=== PATIENT | male | born 1970 | race African-American/Black ===

== ENCOUNTER 2017-05-14 18:55 | Inpatient (IN) | payer OTHER ==
[~2017-05-14] VITALS: Ht 172.7 cm; Wt 96.6 kg
[2017-05-14] VITALS (9 sets, daily range): BP systolic 185–215; BP diastolic 114–165
[2017-05-14] MEDS ORDERED: Nitroglycerin Subl 0.4mg tab SL STA ×2 (19:38→20:02)
[2017-05-14] MEDS ORDERED: Enalaprilat 1.25mg/ml Inj IV ONE (19:45)
--- NOTE | 2017-05-14 20:02 | Emergency Room Report ---
History of Present Illness General Chief Complaint: Edema Source: Patient Present Illness HPI 47 show male walked in with a chief complaint of 2-3 days of shortness of breath , increased leg swelling. Noncompliance with Lasix clonidine and other blood pressure medication for 2-3 days States history of CHF, hypertension Denies chest pain, abdominal pain, vomiting, fever chills, recent hospitalization Allergies: Coded Allergies: No Known Allergies (Unverified , 05/14/17) Patient History Past Medical History: HTN, CHF Past Surgical History: none Pertinent Family History: none Social History: Denies: smoking, alcohol use, drug use Immunizations: UTD Reviewed Nursing Documentation: PMH: Agreed, PSxH: Agreed Nursing Documentation-PMH Hx Cardiac Problems: Yes - CHF Hx Hypertension: Yes Hx Asthma: Yes - Bronchitis Review of Systems All Other Systems: negative except mentioned in HPI Physical Exam Vital Signs Date Time Temp Pulse Resp B/P (MAP) Pulse Ox O2 Delivery O2 Flow Rate FiO2 05/14/17 19:13 98.2 101 14 198/134 93 Room Air Sp02 EP Interpretation: reviewed, normal General Appearance: normal inspection, well appearing, alert, GCS 15, non-toxic , mild distress Head: normocephalic, atraumatic Eyes: bilateral eye PERRL, bilateral eye EOMI ENT: normal ENT inspection, hearing grossly normal, normal pharynx, no angioedema, normal voice, TMs + canals normal, uvula midline, moist mucus membranes Neck: normal inspection, full range of motion, supple, thyroid normal, no meningismus, no bony tend Respiratory: normal inspection, no rhonchi, no retraction, no accessory muscle use, no wheezing, decreased breath sounds, rales, speaking full sentences Cardiovascular #1: regular rate, rhythm, no edema, no JVD, normal capillary refill Gastrointestinal: normal inspection, normal bowel sounds, non tender, soft, no mass, no peritonitis, non-distended, no guarding, no hernia, no pulsatile mass Genitourinary: no CVA tenderness Musculoskeletal: normal inspection, back normal, normal range of motion, no calf tenderness, pelvis stable, Radha's Sign negative, other - bilateral pitting edema to knees Neurologic: normal inspection, alert, oriented x3, responsive, lace inspector III-XII nml as tested, motor strength/tone normal, cerebellar normal, normal gait, speech normal Psychiatric: normal inspection, judgement/insight normal, mood/affect normal, no suicidal/homicidal ideation, no delusions Skin: normal inspection, normal color, no rash Lymphatic: normal inspection, no adenopathy Procedures Critical Care Time Critical Care Time CC time 35 minutes Critical care time endorsed for this patient for acute on chronic CHF, hypertensive emergency, elevated troponin Critical care time includes review of laboratory tests, imaging, review of EMR, review of paperwork from SNF (if available), discussion with patient and family (if available), review of code status/POLS (if available). Critical care time also likely includes assessment of fluid status, stabilization of vital signs, selection and dosing of appropriate antibiotics, selection and dosing of Aspirin/Plavix/Heparin/Lovenox, discussion with PMD/ attending hospitalist/sanitation associate. Critical care time does not include any procedures which are documented elsewhere in this EMR. Medical Decision Making Diagnostic Impression: Primary Impression: Edema Qualified Codes: R60.9 - Edema, unspecified Additional Impressions: CHF (congestive heart failure) Qualified Codes: I50.9 - Heart failure, unspecified Noncompliance Hypertensive emergency ER Course VS with tachycardia, hypertension Afebrile Mild respiratory distress, acute CHF Was given lasix, supplemental O2, clonidine Started on nitro gtt for reftratory HTN, hypertensive emergency likely given elevated troponin CXR with bilateral pulm congestion Endorsed to Dr Bran for ICU at 9pm EKG Diagnostic Results Rate: tachycardiac Rhythm: NSR ST Segments: no acute changes ASA given to the pt in ED: No Rhythm Strip Diag. Results EP Interpretation: yes Rate: 116 Rhythm: NSR, no PVC's, no ectopy Chest X-Ray Diagnostic Results Chest X-Ray Diagnostic Results : Chest X-Ray Ordered: Yes # of Views/Limited/Complete: 1 View Indication: Shortness of Breath EP Interpretation: Yes Interpretation: no consolidation, no pneumothorax, other - Cardiomegaly, pulm congestion Impression: No acute disease Electronically Signed by: Dr Walker Martínez mD Last Vital Signs Date Time Temp Pulse Resp B/P (MAP) Pulse Ox O2 Delivery O2 Flow Rate FiO2 05/14/17 19:13 98.2 101 14 198/134 93 Room Air Status: improved Disposition: ADMITTED INPATIENT Condition: Critical WALKER MARTÍNEZ M.D. May 14, 2017 20:02
[2017-05-14 20:09] LABS: BASOPHILS % (AUTO) 1.7 % (0.0-2.0); HEMATOCRIT 28.8 % (42.0-52.0); HEMOGLOBIN 8.6 G/DL (14.2-18.0); LYMPHOCYTES % (AUTO) 21.2 % (20.0-45.0); MEAN CORPUSCULAR VOLUME 70 FL (80-99); MONOCYTES % (AUTO) 11.7 % (1.0-10.0); NEUTROPHILS % (AUTO) 62.4 % (45.0-75.0); PLATELET COUNT 361 K/UL (150-450); RED BLOOD COUNT 4.11 M/UL (4.70-6.10); RED CELL DISTRIBUTION WIDTH 16.9 % (11.6-14.8); WHITE BLOOD COUNT 8.2 K/UL (4.8-10.8)
[2017-05-14] MEDS ORDERED: cloNIDine 0.2mg Tab ORAL ONE (20:15)
[2017-05-14 20:33] LABS: ANION GAP 7 mmol/L (5-15); BLOOD UREA NITROGEN 26 mg/dL (7-18); CALCIUM 8.6 MG/DL (8.5-10.1); CARBON DIOXIDE 26 MMOL/L (21-32); CHLORIDE 107 MMOL/L (98-107); CREATININE 1.9 MG/DL (0.55-1.30); POTASSIUM 3.7 MMOL/L (3.5-5.1); SODIUM 140 MMOL/L (136-145)
[2017-05-14 20:45] LABS: ALANINE AMINOTRANSFERASE 71 U/L (12-78); ALBUMIN 3.2 G/DL (3.4-5.0); ALBUMIN/GLOBULIN RATIO 0.8 (1.0-2.7); ALKALINE PHOSPHATASE 147 U/L (46-116); ASPARTATE AMINO TRANSFERASE 37 U/L (15-37); BILIRUBIN,TOTAL 1.2 MG/DL (0.2-1.0); CKMB 2.4 NG/ML (0.0-3.6); CREATINE KINASE 182 U/L (26-308)
[2017-05-14] MEDS ORDERED: Nitroglycerin 50mg/250ml btl 250 ML IV SCH ×2 (21:00→22:15)
[2017-05-14 21:03] LABS: BILIRUBIN,DIRECT 0.3 MG/DL (0.0-0.3)
[2017-05-14] MEDS ORDERED: cloNIDine 0.2mg Tab ORAL PRN (22:15)
[2017-05-14] MEDS ORDERED: Doxazosin 4mg tab ORAL SCH (22:15)
[2017-05-14] MEDS: Heparin 5000 units/ml inj SUBQ SCH (23:22)
[2017-05-14 23:29] LABS: APPEARANCE,URINE CLEAR; BILIRUBIN, URINE NEGATIVE (NEGATIVE); COLOR,URINE PALE YELLOW; GLUCOSE, URINE (UA) NEGATIVE (NEGATIVE); KETONES,URINE NEGATIVE (NEGATIVE); LEUKOCYTE ESTERASE ,URINE 1+ (NEGATIVE); NITRITE,URINE NEGATIVE (NEGATIVE); PH,URINE 6 (4.5-8.0); PROTEIN,URINE NEGATIVE (NEGATIVE); UROBILINOGEN,URINE NORMAL MG/DL (0.0-1.0)
[2017-05-14] MEDS: HydrALAZINE 50mg tab ORAL SCH (23:30)
[2017-05-15] VITALS (36 sets, daily range): BP systolic 95–165; BP diastolic 68–99
[2017-05-15] MEDS ORDERED: LORazepam Inj 2mg/ml 1ml IV ONE (01:00)
[2017-05-15] MEDS ORDERED: Nitroglycerin 50mg/250ml btl 250 ML IV SCH (02:15)
[2017-05-15] MEDS ORDERED: Metoprolol 5mg/5ml Inj IVPB ONE (02:30)
[2017-05-15] MEDS ORDERED: Metoprolol 5mg/5ml Inj ONE (03:09)
[2017-05-15] MEDS ORDERED: Metoprolol Tartrate 10 MG in D5W 55 ML IVPB SCH (03:15)
[2017-05-15] MEDS: Metoprolol 25mg tab ORAL SCH ×4 (04:42→22:40)
[2017-05-15] MEDS: HydrALAZINE 50mg tab ORAL SCH ×3 (06:08→21:25)
[2017-05-15 08:42] LABS: ANION GAP 5 mmol/L (5-15); BLOOD UREA NITROGEN 25 mg/dL (7-18); CALCIUM 8.1 MG/DL (8.5-10.1); CARBON DIOXIDE 28 MMOL/L (21-32); CHLORIDE 106 MMOL/L (98-107); CREATININE 1.9 MG/DL (0.55-1.30); POTASSIUM 3.4 MMOL/L (3.5-5.1); SODIUM 139 MMOL/L (136-145)
[2017-05-15 08:47] LABS: ALANINE AMINOTRANSFERASE 56 U/L (12-78); ALBUMIN 2.5 G/DL (3.4-5.0); ALBUMIN/GLOBULIN RATIO 0.7 (1.0-2.7); ALKALINE PHOSPHATASE 124 U/L (46-116); ASPARTATE AMINO TRANSFERASE 27 U/L (15-37); BILIRUBIN,TOTAL 0.9 MG/DL (0.2-1.0); CHOLESTEROL 104 MG/DL (< 200); HDL CHOLESTEROL 29 MG/DL (40-60); TRIGLYCERIDES 45 MG/DL (30-150)
[2017-05-15] MEDS ORDERED: Aspirin EC 81mg tab ORAL SCH (09:00)
[2017-05-15] MEDS: Heparin 5000 units/ml inj SUBQ SCH ×2 (09:34→20:31)
[2017-05-15] MEDS ORDERED: Mylanta II UD 30ml ORAL PRN ×2 (10:00→19:00)
[2017-05-15] MEDS ORDERED: NS 275ml ONE (10:12)
--- NOTE | 2017-05-15 10:39 | Diagnostic Imaging Report ---
Indication: Shortness of breath Technique: One view of the chest Comparison: none Findings: Heart is enlarged. There is left perihilar atelectasis. There is prominence to the right hilar vasculature. There is borderline interstitial congestion. No focal airspace consolidation. No effusions Impression: Cardiomegaly with borderline interstitial congestion
[2017-05-15] MEDS ORDERED: cloNIDine 0.2mg Tab ORAL PRN (19:00)
[2017-05-15] MEDS ORDERED: Metoprolol 25mg tab ORAL SCH (22:00)
--- NOTE | 2017-05-15 23:06 | History and Physical Report ---
DATE OF ADMISSION: 05/14/2017 CHIEF COMPLAINT: Shortness of breath and edema. HISTORY OF PRESENT ILLNESS: The patient is a 47-year-old male. He has a history of congestive heart failure. The patient complains of fluid retention and shortness of breath. The patient is unclear about his medications, although he states that he has been compliant. He is on a diuretic. On evaluation in the emergency room, the patient was significantly hypertensive with systolic pressures greater than 200. He eventually required a nitroglycerin drip for blood pressure control. He is admitted to the intensive care unit. He has had shortness of breath, but denies any chest pain. He has had no fevers, chills, or cough. PAST MEDICAL HISTORY: As above. PAST SURGICAL HISTORY: None. CURRENT MEDICATIONS: The patient does not know. ALLERGIES: None. SOCIAL HISTORY: The patient is a smoker. No alcohol. No drugs. FAMILY HISTORY: None. REVIEW OF SYSTEMS: Negative except for "fluid retention" and shortness of breath. PHYSICAL EXAMINATION: VITAL SIGNS: Temperature 98 degrees, blood pressure 106/77, pulse of 80, and respirations 16. GENERAL: The patient is a well-developed male, in no apparent distress. He is able to speak in full sentences. NECK: Supple. HEART: Regular rate and rhythm. LUNGS: Clear anteriorly. ABDOMEN: Soft, nontender, and nondistended. EXTREMITIES: Significant for 1 to 2+ pitting edema. LABORATORY AND DIAGNOSTIC DATA: Labs showed sodium 140, potassium 3.7, chloride 107, bicarbonate 26, BUN 26, and creatinine 1.9. Bilirubin of 1.2. Natriuretic peptide level of 30,000. Troponin was 0.329. UA was clear. Hemoglobin was 8.6. X-ray results are pending. ASSESSMENT: This is a pleasant male with complaints of hypertensive emergency. 1. Hypertensive emergency. 2. Shortness of breath secondary to above. 3. Anemia. 4. Acute renal failure. PLAN: Wean nitroglycerin drip. Followup echocardiogram. Check venous duplex of the lower extremities. Cardiology evaluation. Replace electrolytes. Check renal ultrasound. Brad Bran M.D. DR: Hemalatha :21 JOB#: [id number] CC:
[2017-05-16] VITALS: BP 139/75
--- NOTE | 2017-05-16 01:15 | Consultation ---
DATE OF CONSULTATION: 05/14/2017 CARDIOLOGY CONSULTATION The patient is seen at the emergency room. REASON FOR CONSULTATION: Congestive heart failure and chest pain. HISTORY OF PRESENT ILLNESS: This is a 47-year-old male with a history of hypertension, congestive heart failure, and chronic bronchitis. He is a very poor historian. He presented to the emergency room complaining of leg swelling. He also developed chest pain. He has had [facility] at both the [place] and [facility]. He does not know details about his condition and treatment plans and cannot attest to compliance with his medication. The patient has developed worsening leg swelling over the past week. He has been congested and short of breath today and has had some chest pain. PAST MEDICAL HISTORY: As outlined above. MEDICATIONS: Unclear. SOCIAL HISTORY: Denies smoking, alcohol, or substance abuse. FAMILY HISTORY: Noncontributory. REVIEW OF SYSTEMS: Cannot be reliably obtained. PHYSICAL EXAMINATION: VITAL SIGNS: Initial blood pressure 198/134, heart rate 101, and respiratory rate 14. He is afebrile. HEENT: Conjunctivae pink. Sclerae are anicteric. Oropharynx clear. NECK: Supple. There is jugular venous distention. LUNGS: With coarse breath sounds and rhonchi. Chest wall with tenderness to palpation. CARDIAC: Regular rhythm and rate. Normal S1, S2 with a fourth heart sound. ABDOMEN: Soft and nontender. No bruits. EXTREMITIES: With 1+ dependent edema. DIAGNOSTIC DATA: EKG revealed sinus rhythm with nonspecific ST-T wave changes. Chest x-ray with no acute process. White count 8.2 and hemoglobin 8.6. Sodium 140, potassium 3.7, bicarbonate 26, BUN 26, and creatinine 1.9. Troponin 0.329. Pro-natriuretic peptide is over 30,000. IMPRESSION: 1. Acute on chronic systolic and diastolic congestive heart failure. 2. Acute coronary syndrome and possible [id number]-[id number] myocardial infarction. 3. 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 4. Malignant hypertension. 5. Anemia. PLAN: 1. Cardiac monitoring. 2. Nasal oxygen. 3. Beta-blockade. 4. Anti-platelet therapy if no signs of acute bleeding. 5. Anemia panel. 6. Diuresis. 7. Titration of antihypertensive regimen for optimal blood pressure control. 8. Echocardiogram and serial troponin levels. Mane Jacobs M.D. DR: MARY JOB#: [id number] CC:
--- NOTE | 2017-05-16 03:30 | Progress Note ---
DATE: 05/15/2017 CARDIOLOGY PROGRESS NOTE SUBJECTIVE: The patient and his family members were present. The patient is unable to give any reliable historical data regarding prior workup and therapy. He thinks he may have had a colonoscopy in the past. He does not know what treatment or diagnoses were given regarding his heart condition. He has had significant chest pain early this morning and was treated with IV nitrates for the time. Blood pressure control was ultimately achieved with oral therapy. OBJECTIVE: VITAL SIGNS: Blood pressure 151/97, earlier 138/82, heart rate 85, respiratory rate 14, and afebrile. LUNGS: Coarse breath sounds. Scattered rhonchi. HEART: Regular rhythm and rate. Normal S1 and S2 with a fourth heart sound. ABDOMEN: Soft. EXTREMITIES: 1+ dependent edema. DIAGNOSTIC DATA: Echocardiogram revealed normal ejection fraction with mild mitral and tricuspid regurgitation and severe pulmonary hypertension. IMPRESSION: 1. Acute coronary syndrome. 2. Hypertensive urgency. 3. Severe pulmonary hypertension. 4. Anemia. 5. Mitral, aortic, and tricuspid regurgitation. PLAN: 1. Continue to maximize antihypertensive. 2. Cautious diuresis. 3. Venous Duplex scan. 4. Serial troponin levels. 5. Family members requested to obtain prior medical workups. 6. Anemia panel in progress. Mane Jacobs M.D. DR: LOVE/ashley JOB#: [id number] CC:
[2017-05-16 04:00] VITALS: BP_SYST 110; BP_SYST 136; BP_DIAS 83; BP_DIAS 99
[2017-05-16] MEDS: HydrALAZINE 50mg tab ORAL SCH (05:00)
[2017-05-16 07:22] LABS: BASOPHILS % (AUTO) 1.2 % (0.0-2.0); EOSINOPHILS % (AUTO) 3.7 % (0.0-3.0); HEMATOCRIT 26.2 % (42.0-52.0); HEMOGLOBIN 8.2 G/DL (14.2-18.0); MEAN CORPUSCULAR VOLUME 69 FL (80-99); MONOCYTES % (AUTO) 13.2 % (1.0-10.0); NEUTROPHILS % (AUTO) 56.9 % (45.0-75.0); PLATELET COUNT 331 K/UL (150-450); RED BLOOD COUNT 3.82 M/UL (4.70-6.10); RED CELL DISTRIBUTION WIDTH 16.3 % (11.6-14.8); WHITE BLOOD COUNT 6.3 K/UL (4.8-10.8)
[2017-05-16 07:38] LABS: ALANINE AMINOTRANSFERASE 51 U/L (12-78); ALBUMIN 2.7 G/DL (3.4-5.0); ALBUMIN/GLOBULIN RATIO 0.8 (1.0-2.7); ALKALINE PHOSPHATASE 116 U/L (46-116); ANION GAP 4 mmol/L (5-15); ASPARTATE AMINO TRANSFERASE 24 U/L (15-37); BILIRUBIN,TOTAL 0.8 MG/DL (0.2-1.0); BLOOD UREA NITROGEN 23 mg/dL (7-18); CALCIUM 8.2 MG/DL (8.5-10.1); CARBON DIOXIDE 30 MMOL/L (21-32); CHLORIDE 105 MMOL/L (98-107); POTASSIUM 3.4 MMOL/L (3.5-5.1); SODIUM 139 MMOL/L (136-145)
[2017-05-16 07:55] LABS: % IRON SATURATION 4 % (15-50); IRON 16 ug/dL (50-175); TOTAL IRON BINDING CAPACITY 411 ug/dL (250-450)
[2017-05-16 08:00] VITALS: BP 144/87
[2017-05-16] MEDS ORDERED: Aspirin EC 81mg tab ORAL SCH (09:00)
[2017-05-16] MEDS: Metoprolol 25mg tab ORAL SCH (09:02)
[2017-05-16] MEDS: Heparin 5000 units/ml inj SUBQ SCH (09:06)
--- NOTE | 2017-05-16 09:58 | General Progress Note ---
Assessment/Plan Problem List: (1) CHF (congestive heart failure) ICD Codes: I50.9 - Heart failure, unspecified SNOMED: 13093481, [id number] Qualifiers: Qualified Codes: I50.9 - Heart failure, unspecified (2) Noncompliance ICD Codes: Z91.19 - Patient's noncompliance with other medical treatment and regimen SNOMED: 1612781 (3) Edema ICD Codes: R60.9 - Edema, unspecified SNOMED: 762100402, [id number] Qualifiers: Qualified Codes: R60.9 - Edema, unspecified Status: stable, progressing Assessment/Plan iv iron check stool ob monitor h/h diuresis bp rx Subjective ROS Limited/Unobtainable: No Constitutional: Reports: malaise, weakness HEENT: Reports: no symptoms Cardiovascular: Reports: no symptoms Respiratory: Reports: no symptoms Gastrointestinal/Abdominal: Reports: no symptoms Genitourinary: Reports: no symptoms Neurologic/Psychiatric: Reports: no symptoms Endocrine: Reports: no symptoms Hematologic/Lymphatic: Reports: no symptoms Allergies: Coded Allergies: No Known Allergies (Unverified , 05/14/17) All Systems: reviewed and negative except above Subjective no events. w/o complaints. feels "better." no chest pain no sob. Objective Last 24 Hour Vital Signs Date Time Temp Pulse Resp B/P (MAP) Pulse Ox O2 Delivery O2 Flow Rate FiO2 05/16/17 09:02 80 144/87 05/16/17 08:00 97.0 102 18 144/87 98 Nasal Cannula 2.0 80 05/16/17 05:00 136/72 05/16/17 04:00 97.7 80 20 136/99 98 Nasal Cannula 2.0 80 05/16/17 04:00 98 05/16/17 00:00 82 05/16/17 00:00 97.5 81 19 139/75 98 Nasal Cannula 2.0 81 05/15/17 22:40 92 158/90 05/15/17 21:25 149/91 05/15/17 20:00 87 05/15/17 20:00 97.9 88 18 140/91 97 Nasal Cannula 2.0 88 05/15/17 16:29 93 153/97 05/15/17 16:00 93 05/15/17 16:00 93 16 153/97 98 Nasal Cannula 2.0 05/15/17 15:06 98.1 05/15/17 15:00 85 14 138/82 99 Nasal Cannula 2.0 05/15/17 14:47 143/92 05/15/17 14:00 82 16 130/79 99 Nasal Cannula 2.0 05/15/17 13:00 80 15 129/82 99 Nasal Cannula 2.0 05/15/17 12:00 91 05/15/17 12:00 98.2 76 16 147/70 98 Nasal Cannula 2.0 05/15/17 11:00 80 15 125/84 99 Nasal Cannula 2.0 05/15/17 10:30 79 16 120/88 98 Nasal Cannula 2.0 05/15/17 10:00 89 14 129/70 97 Nasal Cannula 2.0 Intake and Output 05/15/17 05/16/17 19:00 07:00 Intake Total 722.5 ml 236 ml Output Total 3320 ml 750 ml Balance -2597.5 ml -514 ml Intake Oral 700 ml 236 ml IV Total 22.5 ml Output Urine Total 3320 ml 750 ml Laboratory Tests 05/16/17 04:45: White Blood Count 6.3, Red Blood Count 3.82L, Hemoglobin 8.2L, Hematocrit 26.2L , Mean Corpuscular Volume 69L, Mean Corpuscular Hemoglobin 21.5L, Mean Corpuscular Hemoglobin Concent 31.4L, Red Cell Distribution Width 16.3H, Platelet Count 331, Mean Platelet Volume 7.0, Neutrophils (%) (Auto) 56.9, Lymphocytes (%) (Auto) 25.0, Monocytes (%) (Auto) 13.2H, Eosinophils (%) (Auto) 3.7H, Basophils (%) (Auto) 1.2, Sodium Level 139, Potassium Level 3.4L, Chloride Level 105, Carbon Dioxide Level 30, Anion Gap 4L, Blood Urea Nitrogen 23H, Creatinine 2.0H, Estimat Glomerular Filtration Rate 43.8, Glucose Level 81 , Calcium Level 8.2L, Iron Level 16L, Total Iron Binding Capacity 411, Percent Iron Saturation 4L, Unsaturated Iron Binding 395H, Total Bilirubin 0.8, Aspartate Amino Transf (AST/SGOT) 24, Alanine Aminotransferase (ALT/SGPT) 51, Alkaline Phosphatase 116, Troponin I 0.234H, Pro-B-Type Natriuretic Peptide 8667H, Total Protein 6.2L, Albumin 2.7L, Globulin 3.5, Albumin/Globulin Ratio 0.8L Height (Feet): 5 Height (Inches): 8.00 Weight (Pounds): 213 General Appearance: WD/WN, alert Neck: supple Cardiovascular: regular rhythm Respiratory/Chest: chest wall non-tender, lungs clear, normal breath sounds Abdomen: normal bowel sounds, non tender, soft, no organomegaly Edema: trace edema Neurologic: alert, oriented x 3, responsive MAGDALENA MOREJON May 16, 2017 09:58
--- NOTE | 2017-05-16 10:32 | Cardiology Report ---
APPROVED REPORT EXAM: Two-dimensional and M-mode echocardiogram with Doppler and color Doppler. INDICATION Altered LOC M-Mode DIMENSIONS IVSd1.6 (0.7-1.1cm)Left Atrium (MM)5.2 (1.6-4.0cm) LVDd5.9 (3.5-5.6cm)Aortic Root3.3 (2.0-3.7cm) PWd1.2 (0.7-1.1cm)Aortic Cusp Exc.1.9 (1.5-2.0cm) LVDs3.3 (2.5-4.0cm) PWs2.2 cm Mild left venticular enlargement. Normal left ventricular systolic function and wall motion. Left ventricular ejection fraction estimated to be 60 %. Mild left ventricular hypertrophy. Possible small pericardial effusion. Moderate bi-atrial enlargement. Right ventricular chamber sizes is within normal limits. Focal aortic valve sclerosis with adequate cusp excursion. Mildly thickened mitral valve leaflets with normal excursion. Mild mitral annulus and aortic root calcification. Normal pulmonic valve structure. Normal tricuspid valve structure. IVC dilated at 3.0 cm with physiological collapse indicate increased RA pressure. A color flow and spectral Doppler study was performed and revealed: Mild aortic insufficiency. Mild mitral regurgitation. Mitral inflow velocities indicates possible pseudo normalization pattern implying significant left ventricular diastolic dysfunction (Grade II). Mild tricuspid regurgitation. Tricuspid systolic velocities suggests peak right ventricular systolic pressure of 74 mmHg, consistent with severe pulmonary hypertension. Trace pulmonic regurgitation present.
[2017-05-16 12:00] VITALS: BP 153/110
[2017-05-16 12:24] VITALS: BP 163/115
--- NOTE | 2017-05-16 12:39 | Diagnostic Imaging Report ---
Indication: Acute renal failure Technique: Grayscale and duplex images of the kidneys, retroperitoneum, and bladder were obtained. Comparison: none Findings: Right kidney measures 10.3 cm in length. Left kidney measures 10.6 cm in length. Both kidneys demonstrate normal echogenicity. No hydronephrosis. No focal abnormality. Normal inferior vena cava. Bladder is normal. Impression: negative.
--- NOTE | 2017-05-16 15:04 | Diagnostic Imaging Report ---
Indications: Shortness of breath and pulmonary hypertension Technique: IV administration 4.9 mCi 99m technetium macroaggregated albumin. Images obtained over the lungs in multiple projections. Previously, patient inhaled 40 mCi aerosolized 99M technetium DTPA. Images obtained over the lungs in multiple projections Comparison: Chest radiograph dated 05/14/2017 Findings: Slight heterogeneity to tracer distribution on the perfusion images, but no segmental or subsegmental perfusion defects or areas of ventilation/perfusion mismatch demonstrated. Impression: Findings deemed low probability for pulmonary embolus
--- NOTE | 2017-05-16 18:25 | Cardiology Report ---
APPROVED REPORT EKG Measurement Heart [id number] IA [id number] Normal sinus rhythm with sinus arrhythmia Nonspecific T wave abnormality Prolonged QT Abnormal ECG
[2017-05-16] MEDS ORDERED: Iron Sucrose 100 MG in NS 55 ML IV SCH (21:00)
--- NOTE | 2017-05-17 12:00 | Progress Note ---
DATE: 05/16/2017 CARDIOLOGY PROGRESS NOTE SUBJECTIVE: The patient feels better, less congested and short of breath. OBJECTIVE: VITAL SIGNS: Blood pressure 144/87, heart rate 80, and respiratory rate 18. Afebrile. LUNGS: Few rhonchi. CARDIAC: Regular rhythm and rate. Normal S1, S2 with a fourth heart sound. ABDOMEN: Soft. EXTREMITIES: Trace edema. LABORATORY AND DIAGNOSTIC DATA: White count 6, hemoglobin 8.2. Potassium 3.4. Troponin 0.234. Pro-natriuretic peptide 8600. Albumin 2.7. V/Q scan with low probability for pulmonary embolus. IMPRESSION: 1. Acute on chronic systolic and diastolic congestive heart failure. 2. Anemia, which is chronic and likely multifactorial. 3. Hypertensive heart disease. 4. History of medication noncompliance. 5. Acute coronary syndrome. 6. Hypertensive urgency, resolved. 7. Severe pulmonary hypertension. 8. Mitral, aortic, and tricuspid regurgitation. PLAN: 1. Outpatient followup. 2. We will continue diuresis and antihypertensive titration. 3. Anti-platelet therapy. 4. Anemia workup as an outpatient. 5. Will likely require a bone marrow biopsy. 6. Outpatient stress test to follow. Mane Jacobs M.D. DR: LUIS ANGEL JOB#: [id number] CC:
--- NOTE | 2017-05-19 07:52 | Discharge Summary ---
Discharge Summary Hospital Course Date of Admission May 14, 2017 at 21:28 Date of Discharge May 16, 2017 at 13:55 Admitting Diagnosis CONGESTIVE HEART FAILURE CHRISTINA Munguia is a 47 year old male who was admitted on May 14, 2017 at 21:28 for Congestive Heart Failure Hospital Course dc summary #[id number] Discharge Discharge Disposition Patient signed AMA Discharge Diagnoses: Discharge Instructions Discharge Instructions Special Instructions I have been assigned to complete a D/C Summary on this account. I was not involved in the patient management Hillary Hopper NP (Vanchtein) May 19, 2017 07:52
--- NOTE | 2017-05-19 22:45 | Discharge Summary 2 SIG ---
DATE OF ADMISSION: 05/14/2017 DATE OF DISCHARGE: 05/16/2017 REASON FOR ADMISSION: 47-year-old male with past medical history of CHF and hypertension, presented to emergency room with shortness of breath and leg swelling. Upon evaluation, the patient was tachycardic and blood pressure was 198/134. EKG showed sinus tachycardia. No acute ischemic changes. Chest x-ray revealed cardiomegaly and pulmonary congestion. Troponin elevated -0.329. ProBNP- 54633. BUN -26, creatinine- 1.9. Electrolytes stable. Hemoglobin -8.6, hematocrit-t 28.8. Urine tox screen was positive for marijuana. The patient was admitted with diagnoses of hypertensive emergency, noncompliance, acute coronary syndrome, possible non-STEMI, chronic kidney disease, likely secondary to hypertensive nephrosclerosis, acute on chronic congestive heart failure, anemia of chronic disease. HOSPITAL STAY: The patient was admitted to telemetry floor. Serial troponin were ordered and showed slight decrease in the level, but still elevated, last one 0.234. Echocardiogram revealed preserved ejection fraction of 60%, mild left ventricular hypertrophy, moderate diastolic dysfunction grade 2, right ventricular systolic pressure of 74 consistent with severe pulmonary hypertension, and mitral and tricuspid regurgitation. V/Q scan revealed low probability of PE. The patient was on antiplatelet therapy, beta-isabel. Antihypertensive regimen up-titrated to keep blood pressure under control. Cardiology closely followed and directed regimen for cardiac management. Physical Therapist recommended outpatient stress test. Renal parameters were closely monitored. Nephrotoxics were avoided. The patient likely had chronic kidney disease, secondary to hypertensive nephrosclerosis. Renal ultrasound revealed normal echogenicity of bilateral kidneys and no hydronephrosis. The patient was on cautious diuresis. Volumes and cardiorenal parameters were closely monitored. Supplemental oxygen provided as needed to keep pulse oximetry above 92%. Anemia workup was consistent with iron deficiency anemia and anemia of chronic disease. Patient did not provide sample to check stool for occult blood. The patient received IV Venofer. On 05/16/2017, the patient decided to sign against medical advice. The risks and consequences of signing against medical advice were discussed with the patient. The patient verbalized understanding, but signed the form and left. FINAL DIAGNOSES: 1. Hypertensive urgency 2. Acute coronary syndrome. 3. Possible non-ST elevation myocardial infarction. 4. Acute on chronic diastolic heart failure. 5. Chronic kidney disease, likely secondary to hypertensive nephrosclerosis. 6. Anemia. 7. Severe pulmonary hypertension. 8. Mitral and tricuspid regurgitation. 9. Noncompliance. Brad Bran M.D. I have been assigned to dictate discharge summary on this account and I was not involved in the patient's management. Hillary Vasquezarchie NGaurangPGaurang DR: Tobi JOB#: [id number] CC: [id number]
== END 2017-05-16 13:55 | disposition left against medical advice (07) | DRG 280 ==
LOC: EMR 19:45 → EDBEDREQSVC 21:05 → ICU 21:28 → EDBEDREQ 05-15 00:49 → 2E 05-15 15:37
DX: I16.1 Hypertensive emergency (principal); I50.43 Acute on chronic combined systolic (congestive) and diastolic (congestive) heart failure; I21.4 Non-ST elevation (NSTEMI) myocardial infarction; N17.9 Acute kidney failure, unspecified; I27.20 Pulmonary hypertension, unspecified; I36.1 Nonrheumatic tricuspid (valve) insufficiency; D50.8 Other iron deficiency anemias; F17.200 Nicotine dependence, unspecified, uncomplicated; I24.9 Acute ischemic heart disease, unspecified; I13.0 Hypertensive heart and chronic kidney disease with heart failure and stage 1 through stage 4 chronic kidney disease, or unspecified chronic kidney disease; I35.1 Nonrheumatic aortic (valve) insufficiency; I34.0 Nonrheumatic mitral (valve) insufficiency; Z91.14 Patient's other noncompliance with medication regimen; N18.9 Chronic kidney disease, unspecified; D63.8 Anemia in other chronic diseases classified elsewhere
CPT/HCPCS: 36415; 71045; 76775; 78579; 78580; 80053; 80061; 80307; 81003; 82248; 82378; 82550; 82553; 83540; 83550; 83880; 84484; 85025; 87081; 93005; 93306; A9503; J8499